=== PATIENT | female | born 1990 | race Caucasian/White ===

== ENCOUNTER → 2017-01-11 | Outpatient (CLI) | payer BC ==
--- NOTE | 2017-01-11 09:32 | MM ---
Reason for exam: clinical finding. Baseline mammogram. History: Family history of breast cancer in maternal grandmother at age 50. Took hormonal contraceptives for 10 years beginning at age 11. Physical Findings: Nurse did not find any significant physical abnormalities on exam. MG 3D Diag Mammo W/Cad HIGINIO Bilateral CC and MLO view(s) were taken. There are scattered fibroglandular densities. Asymmetric breast tissue in the right breast denser than left breast. There is no discrete abnormality. These results were verbally communicated with the patient and result sheet given to the patient on 01/11/17. ASSESSMENT: Negative, BI-RAD 1 RECOMMENDATION: Routine screening mammogram of both breasts at age 33. Manage patient on a clinical basis.
--- NOTE | 2017-01-11 09:34 | USB ---
Reason for exam: clinical finding. History: Family history of breast cancer in maternal grandmother at age 50. Took hormonal contraceptives for 10 years beginning at age 11. US Breast LT Left breast ultrasound demonstrates no cystic or solid lesion seen. These results were verbally communicated with the patient and result sheet given to the patient on 01/11/17. ASSESSMENT: Negative, BI-RAD 1 RECOMMENDATION: Routine screening mammogram of both breasts at age 33. Manage patient on a clinical basis.
== END | disposition home or self-care (01) ==
LOC: RADMAMWWP 07:34
PROVIDERS: ATTEND Family Medicine
DX: N63 Unspecified lump in breast (principal); N64.59 Other signs and symptoms in breast
CPT/HCPCS: 76641; G0204; G0279

== ENCOUNTER 2017-01-18 19:52 | Emergency (ER) | payer BC ==
[2017-01-18] MEDS ORDERED: SODIUM CHLORIDE 0.9% 1,000 ML IV ONE (20:23)
--- NOTE | 2017-01-18 20:45 | ED ---
Abdominal Pain HPI - General Chief Complaint: Abdominal Pain Stated Complaint: lower abdominal pain Source: patient Mode of arrival: ambulatory Limitations: no limitations - History of Present Illness Initial Comments: Patient is a 26-year-old female resents for evaluation for lower abdominal pain. Past medical history as below. Patient stated last night she developed epigastric discomfort which was sharp in character. It is now migrated down to the low midline suprapubic area. There is some mild radiation to the right lower side. She states the pain is currently 6-7 out of 10. Not severe. Nothing makes it better or worse. She has no associated nausea vomiting or diarrhea. She has good appetite today. Bumps in the road did not hurt her abdominal pain. She has no vaginal bleeding or discharge. Last measured cycle was 12/24/2016. She has a history of ovarian cyst on the right. She had a normal bowel movement today. No fevers. No sick contacts or recent travel. No changes in medication. She also denies any urinary symptoms. Also denies URI symptoms, shortness breath, cough, chest pain. - Related Data Home Medications Medication Instructions Recorded Confirmed Acetaminophen [Tylenol] 650 mg PO Q4H PRN 01/18/17 01/18/17 Cetirizine HCl [Zyrtec] 10 mg PO DAILY PRN 01/18/17 01/18/17 Ibuprofen [Motrin] 800 mg PO DAILY PRN 01/18/17 01/18/17 Previous Rx's Medication Instructions Recorded Naproxen 500 mg PO BID #14 tablet 01/18/17 Allergies Allergy/AdvReac Type Severity Reaction Status Date / Time hydromorphone HCl AdvReac Nausea & Verified 01/18/17 20:14 [From Dilaudid] Vomiting berries Allergy Swelling Uncoded 01/18/17 20:03 sunflower seeds Allergy Swelling Uncoded 01/18/17 20:03 Review of Systems ROS Statement: Those systems with pertinent positive or pertinent negative responses have been documented in the HPI. ROS Other: All systems not noted in ROS Statement are negative. Past Medical History Past Medical History: No Reported History Additional Past Medical History / Comment(s): MIGRAINES, KIDNEY STONES, GESTATIONAL DIABETES. POST - BABY BORN 01/01/14. History of Any Multi-Drug Resistant Organisms: None Reported Past Surgical History: Cholecystectomy, Orthopedic Surgery Additional Past Surgical History / Comment(s): RT KNEE ARTHROSCOPY AND OSTEOTOMY Past Anesthesia/Blood Transfusion Reactions: No Reported Reaction Past Psychological History: No Psychological Hx Reported Smoking Status: Never smoker Past Alcohol Use History: None Reported Past Drug Use History: None Reported - Past Family History Mother Family Medical History: Cancer Additional Family Medical History / Comment(s): MOTHER SKIN CANCER General Exam Limitations: no limitations General appearance: alert, in no apparent distress, other (Nontoxic appearing) Head exam: Present: atraumatic, normocephalic, normal inspection Eye exam: Present: normal appearance, PERRL, EOMI. Absent: scleral icterus, conjunctival injection, periorbital swelling ENT exam: Present: normal exam, mucous membranes moist Neck exam: Present: normal inspection. Absent: tenderness, meningismus, lymphadenopathy Respiratory exam: Present: normal lung sounds bilaterally. Absent: respiratory distress, wheezes, rales, rhonchi, stridor Cardiovascular Exam: Present: regular rate, normal rhythm, normal heart sounds. Absent: systolic murmur, diastolic murmur, rubs, gallop, clicks GI/Abdominal exam: Present: soft, tenderness, normal bowel sounds, other ( Normal bowel sounds in all 4 quadrants. No tenderness in the epigastric, LUQ/ RUQ/RLQ/LLQ. Negative McBurney sign. No rebound tenderness. Negative Rovsing sign. Negative obturator sign. Negative psoas sign. No pain with jumping up and down on her right leg. She does have some pain with palpation of the suprapubic area.). Absent: distended, guarding, rebound, rigid Extremities exam: Present: normal inspection, full ROM, normal capillary refill. Absent: tenderness, pedal edema, joint swelling, calf tenderness Back exam: Present: normal inspection Neurological exam: Present: alert, oriented X3, CN II-XII intact Psychiatric exam: Present: normal affect, normal mood Skin exam: Present: warm, dry, intact, normal color. Absent: rash Course Vital Signs 01/18/17 20:00 Temperature 98.4 F Pulse Rate 87 Respiratory 16 Rate Blood Pressure 136/79 O2 Sat by Pulse 98 Oximetry Medical Decision Making - Medical Decision Making 2000: Patient is a 26-year-old female presents for evaluation for suprapubic pain. Her history and physical exam is not consistent with an acute appendicitis. Had a lengthy discussion with the patient. Elected to do blood work and ultrasound of her pelvis to identify possible ovarian cyst. She does not want anything for pain at this time. Will order IV fluids. 2100: Reevaluated the patient. States that her pain is 100% resolved. States that she is tired and is requesting to go home. Do not have her laboratory studies back or her ultrasound. Willing to stay. 2220: Laboratory studies as below. CBC, BMP, urinalysis all within normal limits. 2245: Reviewed ultrasound findings. Right hemorrhagic ovarian cyst. Good bloodflow to the ovary. Small amount of free fluid in the pelvis. Consistent with a ruptured hemorrhagic cyst. Patient is pain-free at this time. Discussed all findings with the patient. Will discharge home with naproxen. Encouraged not to take any other NSAIDs or Motrin with the naproxen. She states that she has an career development coordinator that she can follow-up with. Encouraged her to follow up with her primary care physician will provided OB/ REFERRAL AGENT for follow-up if unable to follow in a reasonable time. Discussed signs and symptoms on when to return to emergency department for further evaluation. Comfortable with discharge home and will follow-up. - Lab Data Result diagrams: 01/18/17 21:25 01/18/17 21:25 Lab Results 01/18/17 01/18/17 01/18/17 Range/Units 21:18 21:18 21:25 WBC (3.8-10.6) k/uL RBC (3.80-5.40) m/uL Hgb (11.4-16.0) gm/dL Hct (34.0-46.0) % MCV (80.0-100.0) fL MCH (25.0-35.0) pg MCHC (31.0-37.0) g/dL RDW (11.5-15.5) % Plt Count (150-450) k/uL Neutrophils % % Lymphocytes % % Monocytes % % Eosinophils % % Basophils % % Neutrophils # (1.3-7.7) k/uL Lymphocytes # (1.0-4.8) k/uL Monocytes # (0-1.0) k/uL Eosinophils # (0-0.7) k/uL Basophils # (0-0.2) k/uL Sodium 140 (137-145) mmol/L Potassium 4.0 (3.5-5.1) mmol/L Chloride 106 (98-107) mmol/L Carbon Dioxide 21 L (22-30) mmol/L Anion Gap 13 mmol/L BUN 12 (7-17) mg/dL Creatinine 0.64 (0.52-1.04) mg/dL Est GFR (MDRD) Af Amer >60 (>60 ml/min/1.73 sqM) Est GFR (MDRD) Non-Af >60 (>60 ml/min/1.73 sqM) Glucose 127 H (74-99) mg/dL Calcium 9.4 (8.4-10.2) mg/dL Urine Color Yellow Urine Appearance Clear (Clear) Urine pH 7.5 (5.0-8.0) Ur Specific [place] 1.015 (1.001-1.035) Urine Protein Negative (Negative) Urine Glucose (UA) Negative (Negative) Urine Ketones Negative (Negative) Urine Blood Negative (Negative) Urine Nitrite Negative (Negative) Urine Bilirubin Negative (Negative) Urine Urobilinogen <2.0 (<2.0) mg/dL Ur Leukocyte Esterase Negative (Negative) Urine HCG, Qual Not Detected (Not Detectd) 01/18/17 Range/Units 21:25 WBC 8.5 (3.8-10.6) k/uL RBC 4.26 (3.80-5.40) m/uL Hgb 12.4 (11.4-16.0) gm/dL Hct 37.6 (34.0-46.0) % MCV 88.1 (80.0-100.0) fL MCH 29.1 (25.0-35.0) pg MCHC 33.1 (31.0-37.0) g/dL RDW 14.1 (11.5-15.5) % Plt Count 206 (150-450) k/uL Neutrophils % 66 % Lymphocytes % 26 % Monocytes % 5 % Eosinophils % 1 % Basophils % 0 % Neutrophils # 5.6 (1.3-7.7) k/uL Lymphocytes # 2.3 (1.0-4.8) k/uL Monocytes # 0.4 (0-1.0) k/uL Eosinophils # 0.1 (0-0.7) k/uL Basophils # 0.0 (0-0.2) k/uL Sodium (137-145) mmol/L Potassium (3.5-5.1) mmol/L Chloride (98-107) mmol/L Carbon Dioxide (22-30) mmol/L Anion Gap mmol/L BUN (7-17) mg/dL Creatinine (0.52-1.04) mg/dL Est GFR (MDRD) Af Amer (>60 ml/min/1.73 sqM) Est GFR (MDRD) Non-Af (>60 ml/min/1.73 sqM) Glucose (74-99) mg/dL Calcium (8.4-10.2) mg/dL Urine Color Urine Appearance (Clear) Urine pH (5.0-8.0) Ur Specific [place] (1.001-1.035) Urine Protein (Negative) Urine Glucose (UA) (Negative) Urine Ketones (Negative) Urine Blood (Negative) Urine Nitrite (Negative) Urine Bilirubin (Negative) Urine Urobilinogen (<2.0) mg/dL Ur Leukocyte Esterase (Negative) Urine HCG, Qual (Not Detectd) Disposition Clinical Impression: Hemorrhagic cyst of right ovary Disposition: HOME SELF-CARE Condition: Good Instructions: Ovarian Cyst (ED) Prescriptions: Naproxen 500 mg PO BID #14 tablet Referrals: Shilo Watkins III, MD [Primary Care Provider] - 1-2 days
[2017-01-18 22:04] LABS: Basophils % (A) 0 %; CH 29.3; CHCM 33.4; Eosinophils # (A) 0.1 k/uL (0-0.7); Eosinophils % (A) 1 %; HCT 37.6 % (34.0-46.0); HDW 2.39; HGB 12.4 gm/dL (11.4-16.0); Luc # (Auto) 0.15; Luc % (Auto) 2; Lymphocytes # (A) 2.3 k/uL (1.0-4.8); Lymphocytes % (A) 26 %; MCH 29.1 pg (25.0-35.0); MCHC 33.1 g/dL (31.0-37.0); MCV 88.1 fL (80.0-100.0); Monocytes # (A) 0.4 k/uL (0-1.0); Monocytes % (A) 5 %; Neutrophils # (A) 5.6 k/uL (1.3-7.7); Neutrophils % (A) 66 %; RBC 4.26 m/uL (3.80-5.40); RDW 14.1 % (11.5-15.5); WBC 8.5 k/uL (3.8-10.6); WBC (Perox) 8.77
[2017-01-18 22:05] LABS: Appearance,Urine Clear (Clear); Bilirubin,Urine Negative (Negative); Glucose,Urine (UA) Negative (Negative); Ketones,Urine Negative (Negative); Leukocyte Esterase,Urine Negative (Negative); Nitrite,Urine Negative (Negative); PH, Urine 7.5 (5.0-8.0); Protein,Urine Negative (Negative); Specific Gravity,Urine 1.015 (1.001-1.035); UA Billing (MACRO vs. MICRO) CHEM; Urobilinogen,Urine <2.0 mg/dL (<2.0)
[2017-01-18 22:08] LABS: Anion Gap 13 mmol/L; Blood Urea Nitrogen 12 mg/dL (7-17); Calcium 9.4 mg/dL (8.4-10.2); Carbon Dioxide 21 mmol/L (22-30); Chloride 106 mmol/L (98-107); Glucose 127 mg/dL (74-99); Non-African American GFR(MDRD) >60 (>60 ml/min/1.73 sqM); Sodium 140 mmol/L (137-145)
--- NOTE | 2017-01-18 22:42 | US ---
History: Reason: Pain Exam: US PELVIC/ENDOVAG Comparison: FINDINGS: The uterus measures 8 x 4.1 x 5.4 cm with a volume of 92 cc. 1.1 cm endometrial stripe, correlate with menstrual cycle. The right ovary measures 3.3 x 2.9 x 3.1 cm the volume of 15.8 cc. The right ovary contains a complex cystic lesion measuring 2 x 1.7 x 2 cm and may represent hemorrhagic cyst. A small follicle is noted. There is evidence of arterial and venous flow to the right ovarian tissue. The left ovary measures 3.1 x 1.7 x 1.8 cm the volume of 4.9 cc. There is evidence of arterial and venous flow to left ovarian tissue. Small amount of free fluid is present with appearance of low level echoes, debris or hemorrhage. IMPRESSION: The right ovary contains a complex cystic lesion measuring 2 x 1.7 x 2 cm and may represent hemorrhagic cyst. A small follicle is noted. There is evidence of arterial and venous flow to the right ovarian tissue. Small amount of free fluid is present with appearance of low level echoes, debris or hemorrhage. 1.1 cm endometrial stripe, correlate with menstrual cycle.
[2017-01-18 22:59] VITALS: BP 110/66; PULSE 83; RESP 18; TEMP 98.3
== END 2017-01-18 23:09 | disposition home or self-care (01) ==
LOC: EC 19:52
DX: N83.201 Unspecified ovarian cyst, right side (principal); Z88.5 Allergy status to narcotic agent; Z91.018 Allergy to other foods; Z91.048 Other nonmedicinal substance allergy status; Z87.442 Personal history of urinary calculi; Z90.49 Acquired absence of other specified parts of digestive tract
CPT/HCPCS: 36415; 76830; 80048; 81003; 81025; 85025; 93975; 96360; 99284

== ENCOUNTER 2017-09-13 10:00 | Emergency (ER) | payer BC ==
[2017-09-13] MEDS ORDERED: ONDANSETRON 4 MG/2 ML VIAL IVP STA (10:36)
[2017-09-13] MEDS ORDERED: SODIUM CHLORIDE 0.9% 1,000 ML IV STA (10:36)
[2017-09-13] MEDS ORDERED: SODIUM CHLORIDE 0.9% 500 ML IV STA (10:36)
[2017-09-13] MEDS ORDERED: PANTOPRAZOLE 40 MG/10 ML VIAL IVP STA (10:36)
[2017-09-13] MEDS ORDERED: MORPHINE SULFATE 4 MG/ML SYRINGE IV STA (10:36)
[2017-09-13 10:53] LABS: Appearance,Urine Clear (Clear); Bilirubin,Urine Negative (Negative); Blood,Urine Negative (Negative); Color,Urine Yellow; Glucose,Urine (UA) Negative (Negative); Ketones,Urine Negative (Negative); Leukocyte Esterase,Urine Small (Negative); Mucus,Urine Rare /hpf; Nitrite,Urine Negative (Negative); Protein,Urine Negative (Negative); RBC,Urine 1 /hpf (0-5); Specific Gravity,Urine 1.018 (1.001-1.035); Squamous Epithelial Cell,Urine 2 /hpf (0-4); Urobilinogen,Urine <2.0 mg/dL (<2.0); WBC,Urine 6 /hpf (0-5)
[2017-09-13 11:02] LABS: Basophils % (A) 0 %; Eosinophils # (A) 0.1 k/uL (0-0.7); Eosinophils % (A) 2 %; HCT 42.9 % (34.0-46.0); HGB 13.9 gm/dL (11.4-16.0); Lymphocytes # (A) 0.9 k/uL (1.0-4.8); Lymphocytes % (A) 12 %; MCH 28.1 pg (25.0-35.0); MCHC 32.3 g/dL (31.0-37.0); MCV 86.9 fL (80.0-100.0); Mean Platelet Volume 8.2; Monocytes # (A) 0.2 k/uL (0-1.0); Monocytes % (A) 2 %; Neutrophils # (A) 5.8 k/uL (1.3-7.7); Neutrophils % (A) 83 %; Platelet Count 202 k/uL (150-450); RBC 4.94 m/uL (3.80-5.40); RDW 14.3 % (11.5-15.5); WBC 7.1 k/uL (3.8-10.6)
[2017-09-13 11:07] LABS: ALT 17 U/L (9-52); AST 20 U/L (14-36); Albumin 4.3 g/dL (3.5-5.0); Alkaline Phosphatase 79 U/L (38-126); Amylase 55 U/L (30-110); Anion Gap 14 mmol/L; Blood Urea Nitrogen 13 mg/dL (7-17); Calcium 9.4 mg/dL (8.4-10.2); Carbon Dioxide 21 mmol/L (22-30); Chloride 106 mmol/L (98-107); Glucose 104 mg/dL (74-99); Lipase 42 U/L (23-300); Potassium 4.1 mmol/L (3.5-5.1); Sodium 141 mmol/L (137-145); Total Bilirubin 0.6 mg/dL (0.2-1.3); Total Protein 7.5 g/dL (6.3-8.2)
--- NOTE | 2017-09-13 11:42 | XR ---
EXAMINATION TYPE: XR chest 2V DATE OF EXAM: 09/13/2017 COMPARISON: None HISTORY: 26-year-old female right upper quadrant pain and nausea TECHNIQUE: PA and lateral views FINDINGS: The cardiomediastinal silhouette, aorta, and pulmonary vasculature are within normal limits. Lungs an d pleural spaces are clear. IMPRESSION: No acute cardiopulmonary process.
--- NOTE | 2017-09-13 11:44 | XR ---
EXAMINATION TYPE: XR KUB DATE OF EXAM: 09/13/2017 CLINICAL DATA: 26-year-old female with abdominal pain and nausea, PHH COMPARISON: 09/03/2014 FINDINGS: Lung bases are clear. No evidence for free intraperitoneal air. No dilated small bowel. Scattered small air-fluid levels are present throughout the colon. Air extend s distally into the pelvis. No significant stool burden. Cholecystectomy clips are present. No suspicious calcifications. IMPRESSION: 1. No evidence of bowel obstruction or free intraperitoneal air. 2. Scattered small colonic air-fluid levels suggests mild generalized ileus or enteritis with liquid stool.
--- NOTE | 2017-09-13 12:36 | ED ---
Abdominal Pain HPI - General Chief Complaint: Abdominal Pain Stated Complaint: upper abdominal and upper/lower back pain Time Seen by Provider: 09/13/17 10:19 Source: patient Mode of arrival: ambulatory Limitations: no limitations - History of Present Illness Initial Comments: 26 years old female comes in with abdominal pain is epigastric pain and been there for about 10-3 days she is nauseous no vomiting though she is also complaining about upper and lower back pain don't know trauma though she status post gallbladder surgery about 3-1/2 years ago past medical history is unremarkable otherwise no history of ulcers she denies any alcohol use she has had a few episodes of firm a bronchitis she was on steroids she denies any use of nonsteroidal and his anti-inflammatories. She been having regular bowel movements, no fever no chills past nausea no vomiting no frequency urgency dysuria - Related Data Home Medications Medication Instructions Recorded Confirmed [place] Fe 1.530 1 tab PO HS 09/13/17 09/13/17 Ibuprofen [Motrin Ib] 600 - 800 mg PO TID PRN 09/13/17 09/13/17 Previous Rx's Medication Instructions Recorded Metoclopramide [Reglan] 10 mg PO ACHS #12 tab 09/13/17 Pantoprazole [Protonix] 40 mg PO DAILY #15 tablet. 09/13/17 traMADol HCL [Ultram] 50 mg PO Q6HR PRN #25 tab 09/13/17 Allergies Allergy/AdvReac Type Severity Reaction Status Date / Time hydromorphone HCl AdvReac Nausea & Verified 09/13/17 11:13 [From Dilaudid] Vomiting berries Allergy Swelling Uncoded 09/13/17 10:13 sunflower seeds Allergy Swelling Uncoded 09/13/17 10:13 Review of Systems ROS Statement: Those systems with pertinent positive or pertinent negative responses have been documented in the HPI. ROS Other: All systems not noted in ROS Statement are negative. Past Medical History Past Medical History: No Reported History Additional Past Medical History / Comment(s): MIGRAINES, KIDNEY STONES, GESTATIONAL DIABETES. POST - BABY BORN 01/01/14. History of Any Multi-Drug Resistant Organisms: None Reported Past Surgical History: Cholecystectomy, Orthopedic Surgery Additional Past Surgical History / Comment(s): RT KNEE ARTHROSCOPY AND OSTEOTOMY Past Anesthesia/Blood Transfusion Reactions: No Reported Reaction Past Psychological History: No Psychological Hx Reported Smoking Status: Never smoker Past Alcohol Use History: None Reported Past Drug Use History: None Reported - Past Family History Mother Family Medical History: Cancer Additional Family Medical History / Comment(s): MOTHER SKIN CANCER General Exam - General Exam Comments Initial Comments: General: The patient is awake and alert, in no distress, and does not appear acutely ill. Skin: Skin is warm and dry and no rashes or lesions are noted. Eye: Pupils are equal, round and reactive to light, extra-ocular movements are intact; there is normal conjunctiva bilaterally. Ears, nose, mouth and throat: There are moist mucous membranes and no oral lesions. Neck: The neck is supple, there is no tenderness or JVD. Cardiovascular: There is a regular rate and rhythm. No murmur, rub or gallop is appreciated. Respiratory: To auscultation bilateral, no wheezing no rhonchi no distress respiratory terrazas noticed Gastrointestinal: Tender in the epigastric area and mildly tender in the right upper quadrant area positive bowel sounds no guarding no rebounds Back: There is no tenderness to palpation in the midline. There is no obvious deformity. Musculoskeletal: Normal ROM, no tenderness, There is no pedal edema. There is no calf tenderness or swelling. No cords were appreciated. Neurological: CN II-XII intact, Cranial nerves III through XII are intact. There are no obvious motor or sensory deficits. Coordination appears grossly intact. Speech is normal. Psychiatric: Cooperative, appropriate mood & affect, normal judgment. Limitations: no limitations Course Vital Signs 09/13/17 10:11 Temperature 97.7 F Pulse Rate 102 H Respiratory 20 Rate Blood Pressure 135/79 O2 Sat by Pulse 98 Oximetry Patient was reassessed at 12 , CBC, comprehensive metabolic panel, amylase lipase are within normal range At the abdomen showed some mom ileus, this was discussed in detail with the patient explained patient that this ileus could get resolve the next 24 hours or could change into full f bowel obstruction, considering radiation she decided to hold off the CT of the abdomen and she wanted to go home and plans to come back if it gets worse Medical Decision Making - Lab Data Result diagrams: 09/13/17 10:47 09/13/17 10:47 Lab Results 09/13/17 09/13/17 09/13/17 Range/Units 10:30 10:30 10:47 WBC (3.8-10.6) k/uL RBC (3.80-5.40) m/uL Hgb (11.4-16.0) gm/dL Hct (34.0-46.0) % MCV (80.0-100.0) fL MCH (25.0-35.0) pg MCHC (31.0-37.0) g/dL RDW (11.5-15.5) % Plt Count (150-450) k/uL Neutrophils % % Lymphocytes % % Monocytes % % Eosinophils % % Basophils % % Neutrophils # (1.3-7.7) k/uL Lymphocytes # (1.0-4.8) k/uL Monocytes # (0-1.0) k/uL Eosinophils # (0-0.7) k/uL Basophils # (0-0.2) k/uL Sodium 141 (137-145) mmol/L Potassium 4.1 (3.5-5.1) mmol/L Chloride 106 (98-107) mmol/L Carbon Dioxide 21 L (22-30) mmol/L Anion Gap 14 mmol/L BUN 13 (7-17) mg/dL Creatinine 0.69 (0.52-1.04) mg/dL Est GFR (MDRD) Af Amer >60 (>60 ml/min/1.73 sqM) Est GFR (MDRD) Non-Af >60 (>60 ml/min/1.73 sqM) Glucose 104 H (74-99) mg/dL Calcium 9.4 (8.4-10.2) mg/dL Total Bilirubin 0.6 (0.2-1.3) mg/dL AST 20 (14-36) U/L ALT 17 (9-52) U/L Alkaline Phosphatase 79 (38-126) U/L Total Protein 7.5 (6.3-8.2) g/dL Albumin 4.3 (3.5-5.0) g/dL Amylase 55 (30-110) U/L Lipase 42 (23-300) U/L Urine Color Yellow Urine Appearance Clear (Clear) Urine pH 5.0 (5.0-8.0) Ur Specific [place] 1.018 (1.001-1.035) Urine Protein Negative (Negative) Urine Glucose (UA) Negative (Negative) Urine Ketones Negative (Negative) Urine Blood Negative (Negative) Urine Nitrite Negative (Negative) Urine Bilirubin Negative (Negative) Urine Urobilinogen <2.0 (<2.0) mg/dL Ur Leukocyte Esterase Small H (Negative) Urine RBC 1 (0-5) /hpf Urine WBC 6 H (0-5) /hpf Ur Squamous Epith Cells 2 (0-4) /hpf Urine Mucus Rare H (None) /hpf Urine HCG, Qual Not Detected (Not Detectd) 09/13/17 Range/Units 10:47 WBC 7.1 (3.8-10.6) k/uL RBC 4.94 (3.80-5.40) m/uL Hgb 13.9 (11.4-16.0) gm/dL Hct 42.9 (34.0-46.0) % MCV 86.9 (80.0-100.0) fL MCH 28.1 (25.0-35.0) pg MCHC 32.3 (31.0-37.0) g/dL RDW 14.3 (11.5-15.5) % Plt Count 202 (150-450) k/uL Neutrophils % 83 % Lymphocytes % 12 % Monocytes % 2 % Eosinophils % 2 % Basophils % 0 % Neutrophils # 5.8 (1.3-7.7) k/uL Lymphocytes # 0.9 L (1.0-4.8) k/uL Monocytes # 0.2 (0-1.0) k/uL Eosinophils # 0.1 (0-0.7) k/uL Basophils # 0.0 (0-0.2) k/uL Sodium (137-145) mmol/L Potassium (3.5-5.1) mmol/L Chloride (98-107) mmol/L Carbon Dioxide (22-30) mmol/L Anion Gap mmol/L BUN (7-17) mg/dL Creatinine (0.52-1.04) mg/dL Est GFR (MDRD) Af Amer (>60 ml/min/1.73 sqM) Est GFR (MDRD) Non-Af (>60 ml/min/1.73 sqM) Glucose (74-99) mg/dL Calcium (8.4-10.2) mg/dL Total Bilirubin (0.2-1.3) mg/dL AST (14-36) U/L ALT (9-52) U/L Alkaline Phosphatase (38-126) U/L Total Protein (6.3-8.2) g/dL Albumin (3.5-5.0) g/dL Amylase (30-110) U/L Lipase (23-300) U/L Urine Color Urine Appearance (Clear) Urine pH (5.0-8.0) Ur Specific [place] (1.001-1.035) Urine Protein (Negative) Urine Glucose (UA) (Negative) Urine Ketones (Negative) Urine Blood (Negative) Urine Nitrite (Negative) Urine Bilirubin (Negative) Urine Urobilinogen (<2.0) mg/dL Ur Leukocyte Esterase (Negative) Urine RBC (0-5) /hpf Urine WBC (0-5) /hpf Ur Squamous Epith Cells (0-4) /hpf Urine Mucus (None) /hpf Urine HCG, Qual (Not Detectd) Disposition Clinical Impression: Abdominal pain, Ileus Disposition: HOME SELF-CARE Condition: Good Instructions: Abdominal Pain (ED), Ileus (ED) Prescriptions: Metoclopramide [Reglan] 10 mg PO ACHS #12 tab Pantoprazole [Protonix] 40 mg PO DAILY #15 tablet. traMADol HCL [Ultram] 50 mg PO Q6HR PRN #25 tab PRN Reason: Pain Referrals: Shilo Watkins III, MD [Primary Care Provider] - 1-2 days
[2017-09-13 13:02] VITALS: BP 125/70; PULSE 97; RESP 16; TEMP 98
== END 2017-09-13 13:01 | disposition home or self-care (01) ==
LOC: EC 10:00
DX: K56.7 Ileus, unspecified (principal); M54.5 Low back pain; Z79.3 Long term (current) use of hormonal contraceptives; Z88.5 Allergy status to narcotic agent; Z91.018 Allergy to other foods; Z90.49 Acquired absence of other specified parts of digestive tract
CPT/HCPCS: 99284; 96374; 96375 ×2; 36415; 80053; 82150; 83690; 85025; 81001; 81025; 71046; 74018; 96361 ×2; J2270; J2405; C9113

== ENCOUNTER → 2018-12-11 | Outpatient (CLI) | payer OTHER ==
--- NOTE | 2018-12-11 11:33 | US ---
EXAMINATION TYPE: US pelvis complete transvag DATE OF EXAM: 12/11/2018 COMPARISON: 01/18/2017 CLINICAL HISTORY: R10.2 Pelvic And Perineal Pain,N83.291 Other ovarian cyst. Pt states pelvic pain, m ore on right side TECHNIQUE: Transvaginal (TV) and Transabdominal (TA) . Both were ordered per physician Date of LMP: 11/20/2018 EXAM MEASUREMENTS: Uterus: 7.4 x 3.6 x 4.7 cm Endometrial Stripe: 0.2 cm Right Ovary: 2.5 x 1.5 x 1.9 cm Left Ovary: 3.0 x 1.5 x 2.0 cm 1. Uterus: Retroverted Heterogeneous, small calcification in cervix 2. Endometrium: wnl 3. Right Ovary: wnl 4. Left Ovary: wnl 5. Bilateral Adnexa: wnl 6. Posterior cul-de-sac: wnl IMPRESSION: 1. The uterus is heterogeneous. There is a small calcification the cervix. Findings are nonspecific. No focal fibroid is seen. This can occasionally be associated with diffuse fibroid change. However, t he uterus demonstrates a normal morphology. 2. No evidence of ovarian cysts on today's exam.
== END | disposition home or self-care (01) ==
LOC: RADUSWWP 10:55
PROVIDERS: ATTEND Family Medicine
DX: N88.8 Other specified noninflammatory disorders of cervix uteri (principal); R10.2 Pelvic and perineal pain
CPT/HCPCS: 76830; 76856

== ENCOUNTER → 2019-05-20 | Outpatient (CLI) | payer OTHER ==
--- NOTE | 2019-05-20 13:18 | XR ---
Right ankle HISTORY: Right ankle pain, trauma 3 days prior 3 views of the right ankle There is a small ossific density which appears well-corticated distal to the medial malleolus. Alignm ent and joint spaces are maintained. Mild soft tissue swelling is noted. There is a small plantar andreea caneal spur. IMPRESSION: Correlate for point tenderness distal medial malleolus to assess for avulsion injury, chi p fracture.
== END | disposition home or self-care (01) ==
LOC: RADXRWHC 07:42
PROVIDERS: ATTEND Family Medicine
DX: M25.571 Pain in right ankle and joints of right foot (principal)

== ENCOUNTER 2019-08-01 15:48 | Emergency (ER) | payer BC, OTHER ==
[2019-08-01 16:41] VITALS: RESP 18; TEMP 98
[2019-08-01] MEDS ORDERED: ASPIRIN 81 MG PO STA (17:00)
--- NOTE | 2019-08-01 17:06 | XR ---
EXAMINATION TYPE: XR chest 2V DATE OF EXAM: 08/01/2019 COMPARISON: 09/13/2017 HISTORY: 28-year-old female left arm pain between the shoulder blades TECHNIQUE: PA and lateral views FINDINGS: The cardiomediastinal silhouette, aorta, and pulmonary vasculature are within normal limits. Lungs an d pleural spaces are clear. IMPRESSION: No acute cardiopulmonary process.
[2019-08-01 17:31] LABS: ALT 13 U/L (4-34); AST 40 U/L (14-36); African American GFR (CKD) >90 (>60 ml/min/1.73 sqM); Albumin 4.3 g/dL (3.5-5.0); Alkaline Phosphatase 104 U/L (38-126); Anion Gap 11 mmol/L; Blood Urea Nitrogen 19 mg/dL (7-17); Calcium 9.7 mg/dL (8.4-10.2); Carbon Dioxide 21 mmol/L (22-30); Chloride 107 mmol/L (98-107); Glucose 186 mg/dL (74-99); Non-African American GFR(CKD) >90 (>60 ml/min/1.73 sqM); Potassium 4.3 mmol/L (3.5-5.1); Sodium 139 mmol/L (137-145); Total Bilirubin 0.4 mg/dL (0.2-1.3); Total Protein 7.6 g/dL (6.3-8.2)
[2019-08-01 17:35] LABS: Basophils % (A) 0 %; Eosinophils # (A) 0.1 k/uL (0-0.7); Eosinophils % (A) 1 %; HCT 40.9 % (34.0-46.0); HGB 13.5 gm/dL (11.4-16.0); Lymphocytes # (A) 1.5 k/uL (1.0-4.8); Lymphocytes % (A) 22 %; MCH 28.5 pg (25.0-35.0); MCV 86.4 fL (80.0-100.0); Mean Platelet Volume 10.3; Monocytes # (A) 0.3 k/uL (0-1.0); Monocytes % (A) 4 %; Neutrophils # (A) 4.8 k/uL (1.3-7.7); Neutrophils % (A) 70 %; Platelet Count 217 k/uL (150-450); RBC 4.74 m/uL (3.80-5.40); RDW 14.1 % (11.5-15.5); WBC 6.8 k/uL (3.8-10.6)
--- NOTE | 2019-08-01 19:13 | ED ---
Back Pain HPI - General Chief Complaint: Back Pain/Injury Stated Complaint: Arm/back pain Time Seen by Provider: 08/01/19 16:19 Source: patient, family Limitations: no limitations - History of Present Illness Initial Comments: 28yo female with history of chronic back pain presenting today for cc of mid back pain that radiates down left arm. Patient states she woke up this AM with the pain in her mid/upper back that seemed to radiate to the left elbow, sharp shooting pain. Denies ripping tearing sensation or heart disease, denies DM/HTN. Denies smoking history. Denies chest pain, SOB, leg swelling or history of DVT/PE, denies denies pain increasing with ambulation or inspiration. Patient denies fever, URI symptoms. Denies falls or direct trauma. Patient denies any other complaints on arrival patient appears well no distress. Slight elevation of BP and HR. Patient appears in no distress. - Related Data Home Medications Medication Instructions Recorded Confirmed [place]ovi Fe 1.5 1 tab PO HS 09/13/17 09/13/17 Ibuprofen [Motrin Ib] 600 - 800 mg PO TID PRN 09/13/17 09/13/17 Previous Rx's Medication Instructions Recorded Metoclopramide [Reglan] 10 mg PO ACHS #12 tab 09/13/17 Pantoprazole [Protonix] 40 mg PO DAILY #15 tablet. 09/13/17 traMADol HCL [Ultram] 50 mg PO Q6HR PRN #25 tab 09/13/17 Allergies Allergy/AdvReac Type Severity Reaction Status Date / Time hydromorphone HCl AdvReac Nausea & Verified 08/01/19 16:41 [From Dilaudid] Vomiting berries Allergy Swelling Uncoded 08/01/19 16:41 sunflower seeds Allergy Swelling Uncoded 08/01/19 16:41 Review of Systems ROS Statement: Those systems with pertinent positive or pertinent negative responses have been documented in the HPI. ROS Other: All systems not noted in ROS Statement are negative. Past Medical History Past Medical History: No Reported History Additional Past Medical History / Comment(s): MIGRAINES, KIDNEY STONES, GESTATIONAL DIABETES. POST - BABY BORN 01/01/14. History of Any Multi-Drug Resistant Organisms: None Reported Past Surgical History: Cholecystectomy, Orthopedic Surgery Additional Past Surgical History / Comment(s): RT KNEE ARTHROSCOPY AND OSTEOTOMY Past Anesthesia/Blood Transfusion Reactions: No Reported Reaction Past Psychological History: No Psychological Hx Reported Smoking Status: Never smoker Past Alcohol Use History: None Reported Past Drug Use History: None Reported - Past Family History Mother Family Medical History: Cancer Additional Family Medical History / Comment(s): MOTHER SKIN CANCER General Exam - General Exam Comments Initial Comments: General: The patient is awake and alert, in no distress, and does not appear acutely ill. Eye: +3 mmm pupils are equal, round and reactive to light, extra-ocular movements are intact. No nystagmus. There is normal conjunctiva bilaterally. No signs of icterus. Ears, nose, mouth and throat: There are moist mucous membranes and no oral lesions. Neck: The neck is supple, there is no tenderness or JVD. Cardiovascular: There is a regular rate and rhythm. No murmur, rub or gallop is appreciated. Respiratory: Lungs are clear to auscultation, respirations are non-labored, breath sounds are equal. No wheezes, stridor, rales, or rhonchi. Gastrointestinal: Soft, non-distended, non-tender abdomen without masses or organomegaly noted. There is no rebound or guarding present. Musculoskeletal: Normal ROM, no tenderness. Strength 5/5. Sensation intact. Radial pulses equal bilaterally 2+. Neurological: A&O x 3. CN II-XII intact grossly, There are no obvious motor or sensory deficits. Coordination appears grossly intact. Speech is normal. Skin: Skin is warm and dry and no rashes or lesions are noted. No LE swelling. Psychiatric: Cooperative, appropriate mood & affect, normal judgment. Limitations: no limitations Course Vital Signs 08/01/19 08/01/19 08/01/19 16:39 19:10 21:04 Temperature 98 F Pulse Rate 106 H 94 103 H Respiratory 18 18 18 Rate Blood Pressure 140/83 124/70 152/79 O2 Sat by Pulse 97 98 96 Oximetry Medical Decision Making - Medical Decision Making 28-year-old female presenting for mid back pain radiating down left arm since this morning. Patient states she is unsure if she hurt herself or slept on her back wrong. Patient denies any chest pain shortness of breath initial EKG nonspecific ST findings initial troponin negative. Second troponin negative. Patient has low heart score and at this time I feel this is most likely musculoskeletal. Patient states she feel this is the cause however given patient weight, elevated random blood glucose and history provided i recommended outpatient pcp f/u and possible stress test. Patient verbalized understanding and was discharged appearing well agreed with treatment plan and return parameters. Discussed the case in length with attending provider Dr. Haas was agreeable with discharge at this time. Ventricular rate 101bpm, OR interval 142ms, QRS durations 76ms QT/QTc 348ms/451ms . Patient depression nonspecific T-wave abnormality. EKG percent interpreted and reviewed by my attending provider - Lab Data Result diagrams: 08/01/19 17:05 08/01/19 17:05 Lab Results 08/01/19 08/01/19 08/01/19 Range/Units 17: 17: 17:05 WBC 6.8 (3.8-10.6) k/uL RBC 4.74 (3.80-5.40) m/uL Hgb 13.5 (11.4-16.0) gm/dL Hct 40.9 (34.0-46.0) % MCV 86.4 (80.0-100.0) fL MCH 28.5 (25.0-35.0) pg MCHC 33.0 (31.0-37.0) g/dL RDW 14.1 (11.5-15.5) % Plt Count 217 (150-450) k/uL Neutrophils % 70 % Lymphocytes % 22 % Monocytes % 4 % Eosinophils % 1 % Basophils % 0 % Neutrophils # 4.8 (1.3-7.7) k/uL Lymphocytes # 1.5 (1.0-4.8) k/uL Monocytes # 0.3 (0-1.0) k/uL Eosinophils # 0.1 (0-0.7) k/uL Basophils # 0.0 (0-0.2) k/uL D-Dimer (<0.60) mg/L FEU Sodium 139 (137-145) mmol/L Potassium 4.3 (3.5-5.1) mmol/L Chloride 107 (98-107) mmol/L Carbon Dioxide 21 L (22-30) mmol/L Anion Gap 11 mmol/L BUN 19 H (7-17) mg/dL Creatinine 0.83 (0.52-1.04) mg/dL Est GFR (CKD-EPI)AfAm >90 (>60 ml/min/1.73 sqM) Est GFR (CKD-EPI)NonAf >90 (>60 ml/min/1.73 sqM) Glucose 186 H (74-99) mg/dL Calcium 9.7 (8.4-10.2) mg/dL Total Bilirubin 0.4 (0.2-1.3) mg/dL AST 40 H (14-36) U/L ALT 13 (4-34) U/L Alkaline Phosphatase 104 (38-126) U/L Troponin I <0.012 (0.000-0.034) ng/mL Total Protein 7.6 (6.3-8.2) g/dL Albumin 4.3 (3.5-5.0) g/dL Urine HCG, Qual (Not Detectd) 08/01/19 08/01/19 08/01/19 Range/Units 17:05 17:05 20:07 WBC (3.8-10.6) k/uL RBC (3.80-5.40) m/uL Hgb (11.4-16.0) gm/dL Hct (34.0-46.0) % MCV (80.0-100.0) fL MCH (25.0-35.0) pg MCHC (31.0-37.0) g/dL RDW (11.5-15.5) % Plt Count (150-450) k/uL Neutrophils % % Lymphocytes % % Monocytes % % Eosinophils % % Basophils % % Neutrophils # (1.3-7.7) k/uL Lymphocytes # (1.0-4.8) k/uL Monocytes # (0-1.0) k/uL Eosinophils # (0-0.7) k/uL Basophils # (0-0.2) k/uL D-Dimer 0.34 (<0.60) mg/L FEU Sodium (137-145) mmol/L Potassium (3.5-5.1) mmol/L Chloride (98-107) mmol/L Carbon Dioxide (22-30) mmol/L Anion Gap mmol/L BUN (7-17) mg/dL Creatinine (0.52-1.04) mg/dL Est GFR (CKD-EPI)AfAm (>60 ml/min/1.73 sqM) Est GFR (CKD-EPI)NonAf (>60 ml/min/1.73 sqM) Glucose (74-99) mg/dL Calcium (8.4-10.2) mg/dL Total Bilirubin (0.2-1.3) mg/dL AST (14-36) U/L ALT (4-34) U/L Alkaline Phosphatase (38-126) U/L Troponin I <0.012 (0.000-0.034) ng/mL Total Protein (6.3-8.2) g/dL Albumin (3.5-5.0) g/dL Urine HCG, Qual Not Detected (Not Detectd) Disposition Clinical Impression: Back pain, Left arm pain Disposition: HOME SELF-CARE Condition: Good Instructions (If sedation given, give patient instructions): Back Pain (ED) Additional Instructions: Please use medication as discussed. Please follow-up with family doctor in the next 2 days. Please return to emergency room if the symptoms increase or worsen or for any other concerns. Is patient prescribed a controlled substance at d/c from ED?: No Referrals: Shilo Watkins III, MD [Primary Care Provider] - 1-2 days Time of Disposition: 20:48
[2019-08-01 21:05] VITALS: BP 152/79; PULSE 103
== END 2019-08-01 21:05 | disposition home or self-care (01) ==
LOC: EC 15:48
DX: M54.6 Pain in thoracic spine (principal); M79.602 Pain in left arm; R73.9 Hyperglycemia, unspecified; R94.31 Abnormal electrocardiogram [ECG] [EKG]; M25.522 Pain in left elbow; R03.0 Elevated blood-pressure reading, without diagnosis of hypertension; Z88.5 Allergy status to narcotic agent; Z91.018 Allergy to other foods; Z79.3 Long term (current) use of hormonal contraceptives
CPT/HCPCS: 36415; 71046; 80053; 81025; 84484; 85025; 85379; 93005; 99284

== ENCOUNTER → 2020-04-25 | Outpatient (CLI) | payer BC ==
--- NOTE | 2020-04-25 10:44 | USB ---
Reason for exam: clinical finding. History: Family history of breast cancer in maternal grandmother at age 50. Took hormonal contraceptives for 10 years beginning at age 11. Indicated problem(s): pain in the right breast. Physical Findings: Nurse did not find any significant physical abnormalities on exam. US Breast RT Right complete breast ultrasound includes all four quadrants, the retroareolar region and axilla. Finding demonstrates no cystic or solid lesion seen. Normal node noted in axilla. These results were verbally communicated with the patient and result sheet given to the patient on 04/25/20. ASSESSMENT: Negative, BI-RAD 1 RECOMMENDATION: Routine screening mammogram of both breasts at age 33.
== END | disposition home or self-care (01) ==
LOC: RADUSWWP 09:07
PROVIDERS: ATTEND Obstetrics & Gynecology
DX: N64.4 Mastodynia (principal); Z80.3 Family history of malignant neoplasm of breast

== ENCOUNTER 2021-01-29 17:30 | Emergency (ER) | payer BC ==
[2021-01-29 17:43] VITALS: RESP 18
[2021-01-29] MEDS ORDERED: SODIUM CHLORIDE 0.9% 1,000 ML IV STA (18:27)
[2021-01-29] MEDS ORDERED: ASPIRIN 81 MG PO STA (18:27)
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
[2021-01-29 18:46] LABS: Appearance,Urine Clear (Clear); Bilirubin,Urine Negative (Negative); Blood,Urine Negative (Negative); Color,Urine Colorless; Glucose,Urine (UA) Negative (Negative); Ketones,Urine Negative (Negative); Leukocyte Esterase,Urine Negative (Negative); Nitrite,Urine Negative (Negative); Protein,Urine Negative (Negative); Specific Gravity,Urine 1.003 (1.001-1.035); Urobilinogen,Urine <2.0 mg/dL (<2.0)
[2021-01-29 18:48] LABS: Basophils % (A) 0 %; Eosinophils # (A) 0.1 k/uL (0-0.7); Eosinophils % (A) 1 %; HCT 39.8 % (34.0-46.0); HGB 13.7 gm/dL (11.4-16.0); Lymphocytes # (A) 1.1 k/uL (1.0-4.8); Lymphocytes % (A) 11 %; MCH 28.6 pg (25.0-35.0); MCHC 34.4 g/dL (31.0-37.0); MCV 83.2 fL (80.0-100.0); Mean Platelet Volume 9.7; Monocytes # (A) 0.3 k/uL (0-1.0); Monocytes % (A) 3 %; Neutrophils # (A) 8.3 k/uL (1.3-7.7); Neutrophils % (A) 85 %; Platelet Count 246 k/uL (150-450); RBC 4.78 m/uL (3.80-5.40); WBC 9.7 k/uL (3.8-10.6)
[2021-01-29 18:57] LABS: ALT 11 U/L (4-34); AST 22 U/L (14-36); African American GFR (CKD) >90 (>60 ml/min/1.73 sqM); Albumin 4.6 g/dL (3.5-5.0); Alkaline Phosphatase 104 U/L (38-126); Anion Gap 12 mmol/L; Blood Urea Nitrogen 16 mg/dL (7-17); Calcium 10.1 mg/dL (8.4-10.2); Carbon Dioxide 20 mmol/L (22-30); Chloride 105 mmol/L (98-107); Glucose 172 mg/dL (74-99); Magnesium 1.7 mg/dL (1.6-2.3); Non-African American GFR(CKD) >90 (>60 ml/min/1.73 sqM); Potassium 4.2 mmol/L (3.5-5.1); Sodium 137 mmol/L (137-145); Total Bilirubin 0.3 mg/dL (0.2-1.3); Total Protein 7.7 g/dL (6.3-8.2)
[2021-01-29 19:02] LABS: D-Dimer 0.53 mg/L FEU (<0.60); INR 0.9 (<1.2); Prothrombin Time 9.7 sec (9.0-12.0)
[2021-01-29 19:08] LABS: Partial Thromboplastin Time 19.7 sec (22.0-30.0)
--- NOTE | 2021-01-29 19:38 | XR ---
EXAMINATION TYPE: XR chest 2V DATE OF EXAM: 01/29/2021 COMPARISON: 08/01/2019 HISTORY: Chest pain TECHNIQUE: 2 views FINDINGS: Heart and mediastinum are normal. Lungs are clear. Diaphragm is normal. Bony thorax is inta ct. IMPRESSION: Normal chest. No change.
[2021-01-29 20:05] VITALS: BP 118/71; PULSE 74; TEMP 98
== END 2021-01-29 20:05 | disposition home or self-care (01) ==
LOC: EC 17:30
DX: R07.89 Other chest pain (principal); F41.9 Anxiety disorder, unspecified; G40.909 Epilepsy, unspecified, not intractable, without status epilepticus
CPT/HCPCS: 36415; 71046; 80053; 81003; 81025; 83735; 84484; 85025; 85379; 85610; 85730; 93005; 96360; 99285

== ENCOUNTER → 2021-03-17 | Outpatient (CLI) | payer OTHER ==
--- NOTE | 2021-03-17 12:00 | XR ---
EXAMINATION TYPE: XR ankle complete RT DATE OF EXAM: 03/17/2021 COMPARISON: NONE HISTORY: Pain FINDINGS: Three views of the ankle demonstrate the ankle mortise to be intact and symmetric. The joint spaces are preserved. The osseous structures are intact. Well-corticated bony density along the medial mal leolus. IMPRESSION: 1. No definite acute fracture or dislocation, if symptoms persist follow-up study in 7 to 10 days wou ld be suggested.
--- NOTE | 2021-03-17 12:00 | XR ---
EXAMINATION TYPE: XR foot complete RT DATE OF EXAM: 03/17/2021 COMPARISON: NONE HISTORY: Pain TECHNIQUE: Three views are submitted. FINDINGS: The osseous structures are intact. There is no acute fracture or dislocation. Joint spaces are p reserved. Tiny plantar calcaneal spur IMPRESSION: 1. No acute fracture or dislocation. If symptoms persist, follow-up exam in 7 to 10 days could be ob tained.
== END | disposition home or self-care (01) ==
LOC: RADXRMAIN 11:31
PROVIDERS: ATTEND Emergency Medicine
DX: M77.31 Calcaneal spur, right foot (principal)

== ENCOUNTER 2021-12-26 20:36 | Emergency (ER) | payer BC ==
[2021-12-26 20:59] VITALS: TEMP 98.1
[2021-12-26 21:44] VITALS: BP 114/79; PULSE 113; RESP 20
[2021-12-26] MEDS ORDERED: SODIUM CHLORIDE 0.9% 1,000 ML IV STA (22:24)
[2021-12-26] MEDS ORDERED: ONDANSETRON 4 MG/2 ML VIAL IVP STA (22:24)
[2021-12-26] MEDS ORDERED: MORPHINE SULFATE 4 MG/ML SYRINGE IVP STA (22:27)
--- NOTE | 2021-12-26 23:28 | XR ---
EXAMINATION TYPE: XR KUB DATE OF EXAM: 12/26/2021 COMPARISON: 09/13/2017 HISTORY: Abdominal pain TECHNIQUE: 2 views FINDINGS: 2 views upright show no sign of intestinal obstruction or pneumoperitoneum. Fecal pattern i s normal. There are a few intestinal fluid levels. I see no dilated loops. Lung bases are clear. No c alcification seen over the kidneys. There are clips from cholecystectomy. IMPRESSION: There are a few intestinal fluid levels that could relate to some ileus. No change.
[2021-12-26 23:56] LABS: ALT 18 U/L (4-34); AST 35 U/L (14-36); African American GFR (CKD) >90 (>60 ml/min/1.73 sqM); Albumin 5.1 g/dL (3.5-5.0); Alkaline Phosphatase 79 U/L (38-126); Amylase 65 U/L (30-110); Anion Gap 15 mmol/L; Blood Urea Nitrogen 18 mg/dL (7-17); Calcium 9.9 mg/dL (8.4-10.2); Carbon Dioxide 20 mmol/L (22-30); Chloride 103 mmol/L (98-107); Glucose 133 mg/dL (74-99); Lipase 40 U/L (23-300); Non-African American GFR(CKD) >90 (>60 ml/min/1.73 sqM); Potassium 4.4 mmol/L (3.5-5.1); Sodium 138 mmol/L (137-145); Total Bilirubin 0.7 mg/dL (0.2-1.3); Total Protein 8.7 g/dL (6.3-8.2)
[2021-12-26 23:58] LABS: Appearance,Urine Clear (Clear); Bilirubin,Urine 1+ (Negative); Blood,Urine Trace (Negative); Color,Urine Yellow; Glucose,Urine (UA) Negative (Negative); Ketones,Urine 4+ (Negative); Leukocyte Esterase,Urine Small (Negative); Mucus,Urine Rare /hpf; Nitrite,Urine Negative (Negative); PH, Urine 5.5 (5.0-8.0); Protein,Urine Trace (Negative); RBC,Urine 1 /hpf (0-5); Specific Gravity,Urine 1.033 (1.001-1.035); Squamous Epithelial Cell,Urine 2 /hpf (0-4); Urobilinogen,Urine <2.0 mg/dL (<2.0); WBC,Urine 3 /hpf (0-5)
[2021-12-27 00:01] LABS: Basophils % (A) 0 %; Eosinophils # (A) 0.1 k/uL (0-0.7); Eosinophils % (A) 1 %; HCT 44.4 % (34.0-46.0); HGB 14.5 gm/dL (11.4-16.0); Lymphocytes # (A) 0.6 k/uL (1.0-4.8); Lymphocytes % (A) 5 %; MCH 28.7 pg (25.0-35.0); MCHC 32.8 g/dL (31.0-37.0); MCV 87.6 fL (80.0-100.0); Mean Platelet Volume 10.3; Monocytes # (A) 0.3 k/uL (0-1.0); Monocytes % (A) 3 %; Neutrophils # (A) 10.5 k/uL (1.3-7.7); Neutrophils % (A) 91 %; Platelet Count 280 k/uL (150-450); RBC 5.07 m/uL (3.80-5.40); RDW 14.2 % (11.5-15.5); WBC 11.6 k/uL (3.8-10.6)
[2021-12-27] MEDS ORDERED: MAG HYDROX/AL HYDROX/SIMETH 30 ML, HYOSCYAMINE ELIXIR 10 ML, LIDOCAINE VISCOUS 2% 10 ML PO STA ×3 (00:03)
[2021-12-27] MEDS ORDERED: FAMOTIDINE 20 MG/2 ML VIAL IV STA (00:03)
--- NOTE | 2021-12-27 00:10 | CT ---
EXAMINATION TYPE: CT abdomen pelvis w con DATE OF EXAM: 12/26/2021 COMPARISON: 09/03/2014 HISTORY: epigastric pain CT DLP: 983.1 mGycm Automated exposure control for dose reduction was used. CONTRAST: Performed with IV Contrast, patient injected with 100 mL of Isovue 300. Images obtained from the diaphragm to the floor the pelvis with IV contrast. The lung bases are clear. No pleural effusion. Heart size is normal. No pericardial effusion. Liver s pleen and stomach pancreas appear intact. There are clips from cholecystectomy. The bile ducts are no t dilated. There is no adrenal mass. Kidneys have normal size and contour. No hydronephrosis. Delayed images paige w normal renal excretion. There is no retroperitoneal adenopathy. Bladder distends smoothly. Uterus i s retroverted. No evidence of a pelvic mass. Lumbar vertebrae have normal spacing and alignment. Posterior elements are intact. No compression fra cture. Facet joints are intact. There is no mesenteric edema. No ascites or free air. No sign of a bowel obstruction. There are large bowel fluid levels down to the rectum. Terminal ileum appears normal. Appendix appears normal and al srinivas the lateral pelvic sidewall. Appendix partially filled with air. IMPRESSION: Normal appendix. There are large small fluid levels with fluid down to the rectum consistent with diarrhea.
[2021-12-27] MEDS ORDERED: ONDANSETRON 4 MG ODT STARTER PACK 2 TAB BTL PO STA (00:38)
[2021-12-27] MEDS ORDERED: KETOROLAC 15 MG/ML 1 ML VIAL IM STA (00:44)
--- NOTE | 2021-12-27 00:45 | ED ---
Abdominal Pain HPI - General Chief Complaint: Abdominal Pain Stated Complaint: Abd pain,Vomiting Time Seen by Provider: 12/26/21 22:17 Source: patient Mode of arrival: ambulatory Limitations: no limitations - History of Present Illness Initial Comments: Patient is a 31-year-old female presenting with chief complaint of abdominal pain. She has a history of type 2 diabetes. Patient states that starting today she began experiencing epigastric pain, at times the pain radiates to her back. It is accompanied by nausea, vomiting, diarrhea. She denies any hematochezia, melena, hematuria, dysuria, urgency, frequency. Does not change with food or positioning. She denies any chest pain, shortness of breath, palpitations, weakness, headache, vision changes, neck pain, recent illness, URI like symptoms. - Related Data Home Medications Medication Instructions Recorded Confirmed [place] Fe .5 1 tab PO HS 09/13/17 09/13/17 Ibuprofen [Motrin Ib] 600 - 800 mg PO TID PRN 09/13/17 09/13/17 Previous Rx's Medication Instructions Recorded Metoclopramide [Reglan] 10 mg PO ACHS #12 tab 09/13/17 Pantoprazole [Protonix] 40 mg PO DAILY #15 tablet. 09/13/17 traMADol HCL [Ultram] 50 mg PO Q6HR PRN #25 tab 09/13/17 Famotidine [Pepcid] 20 mg PO HS #10 tablet 12/27/21 Allergies Allergy/AdvReac Type Severity Reaction Status Date / Time hydromorphone HCl AdvReac Nausea & Verified 12/26/21 20:55 [From Dilaudid] Vomiting berries Allergy Swelling Uncoded 12/26/21 20:55 sunflower seeds Allergy Swelling Uncoded 12/26/21 20:55 Review of Systems ROS Statement: Those systems with pertinent positive or pertinent negative responses have been documented in the HPI. ROS Other: All systems not noted in ROS Statement are negative. Past Medical History Past Medical History: Diabetes Mellitus Additional Past Medical History / Comment(s): MIGRAINES, KIDNEY STONES, GESTATIONAL DIABETES. History of Any Multi-Drug Resistant Organisms: None Reported Past Surgical History: Cholecystectomy, Orthopedic Surgery Additional Past Surgical History / Comment(s): RT KNEE ARTHROSCOPY AND OSTEOTOMY Past Anesthesia/Blood Transfusion Reactions: No Reported Reaction Past Psychological History: No Psychological Hx Reported Smoking Status: Never smoker Past Alcohol Use History: None Reported Past Drug Use History: None Reported - Past Family History Mother Family Medical History: Cancer Additional Family Medical History / Comment(s): MOTHER SKIN CANCER General Exam Limitations: no limitations General appearance: alert, in no apparent distress Head exam: Present: atraumatic, normocephalic, normal inspection Eye exam: Present: normal appearance, EOMI. Absent: scleral icterus Neck exam: Present: normal inspection Respiratory exam: Present: normal lung sounds bilaterally. Absent: respiratory distress, wheezes, rales, rhonchi, stridor Cardiovascular Exam: Present: regular rate, normal rhythm, normal heart sounds. Absent: systolic murmur, diastolic murmur, rubs, gallop, clicks GI/Abdominal exam: Present: soft, tenderness (The epigastric region), normal bowel sounds. Absent: distended, guarding, rebound, rigid Neurological exam: Present: alert, oriented X3, CN II-XII intact Psychiatric exam: Present: normal affect, normal mood Skin exam: Present: warm, dry, intact, normal color. Absent: rash Course Vital Signs 12/26/21 12/26/21 20:55 21:43 Temperature 98.1 F Pulse Rate 110 H 113 H Respiratory 18 20 Rate Blood Pressure 111/69 114/79 O2 Sat by Pulse 98 97 Oximetry Medical Decision Making - Medical Decision Making Patient is a 31-year-old female presenting with chief complaint of epigastric pain. Is accompanied by nausea, vomiting, diarrhea, and began today. On examination abdomen is soft, nondistended, nontender over the epigastric region. No CVA tenderness. Normal bowel sounds in all 4 quadrants. Slight leukocytosis. UA shows signs of dehydration. KUB x-ray shows a few intestinal fluid levels that could relate to an ileus. CT shows normal appendix and fluid levels with fluid down to the rectum consistent with diarrhea. Patient was given Pepcid and GI cocktail as well as fluid bolus, on reassessment patient states that she is feeling better. She appears stable for discharge with outpatient follow-up at this time. I advised her to follow up with her PCP in one to 2 days. Provided her with Zofran starter pack and Pepcid. Report back to ER if any worsening symptoms. Answered all questions. I counseled on return parameters alarm symptoms. Patient conveyed verbal understanding and agreed to the plan. I discussed this case with my attending Dr. Owen. - Lab Data Result diagrams: 12/26/21 23:11 12/26/21 23:11 Lab Results 12/26/21 12/26/21 12/26/21 Range/Units 23:11 23:11 23:11 WBC 11.6 H (3.8-10.6) k/uL RBC 5.07 (3.80-5.40) m/uL Hgb 14.5 (11.4-16.0) gm/dL Hct 44.4 (34.0-46.0) % MCV 87.6 (80.0-100.0) fL MCH 28.7 (25.0-35.0) pg MCHC 32.8 (31.0-37.0) g/dL RDW 14.2 (11.5-15.5) % Plt Count 280 (150-450) k/uL MPV 10.3 Neutrophils % 91 % Lymphocytes % 5 % Monocytes % 3 % Eosinophils % 1 % Basophils % 0 % Neutrophils # 10.5 H (1.3-7.7) k/uL Lymphocytes # 0.6 L (1.0-4.8) k/uL Monocytes # 0.3 (0-1.0) k/uL Eosinophils # 0.1 (0-0.7) k/uL Basophils # 0.0 (0-0.2) k/uL Sodium (137-145) mmol/L Potassium (3.5-5.1) mmol/L Chloride (98-107) mmol/L Carbon Dioxide (22-30) mmol/L Anion Gap mmol/L BUN (7-17) mg/dL Creatinine (0.52-1.04) mg/dL Est GFR (CKD-EPI)AfAm (>60 ml/min/1.73 sqM) Est GFR (CKD-EPI)NonAf (>60 ml/min/1.73 sqM) Glucose (74-99) mg/dL Plasma Lactic Acid Jonas (0.7-2.0) mmol/L Calcium (8.4-10.2) mg/dL Total Bilirubin (0.2-1.3) mg/dL AST (14-36) U/L ALT (4-34) U/L Alkaline Phosphatase (38-126) U/L Troponin I (0.000-0.034) ng/mL Total Protein (6.3-8.2) g/dL Albumin (3.5-5.0) g/dL Amylase (30-110) U/L Lipase (23-300) U/L Urine Color Yellow Urine Appearance Clear (Clear) Urine pH 5.5 (5.0-8.0) Ur Specific [place] 1.033 (1.001-1.035) Urine Protein Trace H (Negative) Urine Glucose (UA) Negative (Negative) Urine Ketones 4+ H (Negative) Urine Blood Trace H (Negative) Urine Nitrite Negative (Negative) Urine Bilirubin 1+ H (Negative) Urine Urobilinogen <2.0 (<2.0) mg/dL Ur Leukocyte Esterase Small H (Negative) Urine RBC 1 (0-5) /hpf Urine WBC 3 (0-5) /hpf Ur Squamous Epith Cells 2 (0-4) /hpf Urine Mucus Rare H (None) /hpf Urine HCG, Qual Not Detected (Not Detectd) 12/26/21 12/26/21 12/26/21 Range/Units 23:11 23:11 23:11 WBC (3.8-10.6) k/uL RBC (3.80-5.40) m/uL Hgb (11.4-16.0) gm/dL Hct (34.0-46.0) % MCV (80.0-100.0) fL MCH (25.0-35.0) pg MCHC (31.0-37.0) g/dL RDW (11.5-15.5) % Plt Count (150-450) k/uL MPV Neutrophils % % Lymphocytes % % Monocytes % % Eosinophils % % Basophils % % Neutrophils # (1.3-7.7) k/uL Lymphocytes # (1.0-4.8) k/uL Monocytes # (0-1.0) k/uL Eosinophils # (0-0.7) k/uL Basophils # (0-0.2) k/uL Sodium 138 (137-145) mmol/L Potassium 4.4 (3.5-5.1) mmol/L Chloride 103 (98-107) mmol/L Carbon Dioxide 20 L (22-30) mmol/L Anion Gap 15 mmol/L BUN 18 H (7-17) mg/dL Creatinine 0.73 (0.52-1.04) mg/dL Est GFR (CKD-EPI)AfAm >90 (>60 ml/min/1.73 sqM) Est GFR (CKD-EPI)NonAf >90 (>60 ml/min/1.73 sqM) Glucose 133 H (74-99) mg/dL Plasma Lactic Acid Jonas 1.6 (0.7-2.0) mmol/L Calcium 9.9 (8.4-10.2) mg/dL Total Bilirubin 0.7 (0.2-1.3) mg/dL AST 35 (14-36) U/L ALT 18 (4-34) U/L Alkaline Phosphatase 79 (38-126) U/L Troponin I <0.012 (0.000-0.034) ng/mL Total Protein 8.7 H (6.3-8.2) g/dL Albumin 5.1 H (3.5-5.0) g/dL Amylase 65 (30-110) U/L Lipase 40 (23-300) U/L Urine Color Urine Appearance (Clear) Urine pH (5.0-8.0) Ur Specific [place] (1.001-1.035) Urine Protein (Negative) Urine Glucose (UA) (Negative) Urine Ketones (Negative) Urine Blood (Negative) Urine Nitrite (Negative) Urine Bilirubin (Negative) Urine Urobilinogen (<2.0) mg/dL Ur Leukocyte Esterase (Negative) Urine RBC (0-5) /hpf Urine WBC (0-5) /hpf Ur Squamous Epith Cells (0-4) /hpf Urine Mucus (None) /hpf Urine HCG, Qual (Not Detectd) Disposition Clinical Impression: Gastroenteritis Disposition: HOME SELF-CARE Condition: Good Instructions (If sedation given, give patient instructions): Dehydration (ED), Gastroenteritis (ED) Additional Instructions: Report back to ER if any worsening symptoms. Follow-up with PCP in one to 2 days. Take medication as prescribed. Prescriptions: Famotidine [Pepcid] 20 mg PO HS #10 tablet Is patient prescribed a controlled substance at d/c from ED?: No Referrals: Aleah Herrera MD [Primary Care Provider] - 1-2 days Time of Disposition: 00:44
== END 2021-12-27 01:02 | disposition home or self-care (01) ==
LOC: EC 20:36
DX: K52.9 Noninfective gastroenteritis and colitis, unspecified (principal); E11.9 Type 2 diabetes mellitus without complications; Z88.5 Allergy status to narcotic agent; Z91.018 Allergy to other foods
CPT/HCPCS: 36415; 93005; 80053; 82150; 83605; 83690; 84484; 85025; 81001; 81025; 74018; 74177; 99284; 96374; 96375; 96372; 96361; J2270; J2405; J1885; S0119; Q9967

== ENCOUNTER 2021-12-28 09:08 | Emergency (ER) | payer BC ==
[2021-12-28] MEDS ORDERED: diphenhydrAMINE 50 MG/ML 1 ML VIAL IVP STA (09:41)
[2021-12-28] MEDS ORDERED: SODIUM CHLORIDE 0.9% 2,000 ML IV STA (09:41)
[2021-12-28] MEDS ORDERED: ONDANSETRON 4 MG/2 ML VIAL IVP STA (09:41)
[2021-12-28] MEDS ORDERED: MORPHINE SULFATE 4 MG/ML SYRINGE IV STA (09:41)
[2021-12-28] MEDS ORDERED: FAMOTIDINE 20 MG/2 ML VIAL IV STA (09:41)
--- NOTE | 2021-12-28 09:51 | ED ---
General Adult HPI - General Chief complaint: Abdominal Pain Stated complaint: vomiting, diarrhea Time Seen by Provider: 12/28/21 09:30 Source: patient, RN notes reviewed, old records reviewed Mode of arrival: ambulatory Limitations: no limitations - History of Present Illness Initial comments: Patient is a 31-year-old female with past medical history remarkable for cholecystectomy, type 2 diabetes on metformin who presents emergency Department complaining of continued generalized abdominal crampy pain with continued diarrhea. Patient's PCP was concerned that she may have Salmonella. There was a recent outbreak with peanut butter, however patient's pain over that she has been eating has been uncontaminated. She cross referenced to the lot number provided by the [facility] and the people accompanying. She was seen 2 days ago for similar complaints, when CT imaging was obtained at that time and showed signs consistent for diarrhea. Labs showed some mild dehydration. Workup otherwise was unremarkable. She is discharged home. He has not had much improvement of her symptoms. Presents today she states she believes she is dehydrated, she is frequently using the restroom. Describes her diarrhea is nonbloody.. Denies any new symptoms. Endorses generalized abdominal pain, some mild concentration epigastric region. Endorses occasional nausea but no vomiting. Denies any urinary complaints. Denies . Has no chest pain or shortness of breath. Denies any known sick contacts. No recent long distance travel. No other acute complaints at this time. No rashes. No fevers. - Related Data Home Medications Medication Instructions Recorded Confirmed Ciprofloxacin HCl [Cipro] 500 mg PO Q12HR 12/28/21 12/28/21 Loperamide HCl [Imodium A-D] 4 mg PO Q4H PRN 12/28/21 12/28/21 Norethindrone-Ethinyl Estrad 1 tab PO DAILY 12/28/21 12/28/21 [Tri-Norinyl 28 Tablet] Ondansetron Odt [Zofran Odt] 4 mg PO Q8H PRN 12/28/21 12/28/21 metFORMIN HCL [Glucophage XR] 750 mg PO DAILY 12/28/21 12/28/21 Previous Rx's Medication Instructions Recorded Famotidine [Pepcid] 20 mg PO HS #10 tablet 12/27/21 Dicyclomine [Bentyl] 20 mg PO TID PRN 7 Days #21 tablet 12/28/21 HYDROcodone/APAP 5-325MG [[place] 1 tab PO Q6HR PRN 3 Days #12 tab 12/28/21 5-325] Ondansetron [Zofran ODT] 4 mg PO Q8HR PRN 3 Days #9 tab 12/28/21 Allergies Allergy/AdvReac Type Severity Reaction Status Date / Time blueberry Allergy Swelling Verified 12/28/21 09:49 raspberry Allergy Swelling Verified 12/28/21 09:49 strawberry Allergy Swelling Verified 12/28/21 09:49 [place] Seed Allergy Swelling Verified 12/28/21 09:49 hydromorphone HCl AdvReac Nausea & Verified 12/28/21 09:49 [From Dilaudid] Vomiting berries Allergy Swelling Uncoded 12/28/21 09:17 Review of Systems ROS Statement: Those systems with pertinent positive or pertinent negative responses have been documented in the HPI. Review of Systems: CONST: Denies fever EYES: Denies blurry vision ENT: Denies nasal congestion C/V: Denies Chest pain RESP: Denies shortness of breath GI: Endorses crampy abdominal pain. : Denies dysuria SKIN: Denies rash. MSK: Denies joint pain. NEURO: Denies headache ROS Other: All systems not noted in ROS Statement are negative. Past Medical History Past Medical History: Diabetes Mellitus Additional Past Medical History / Comment(s): MIGRAINES, KIDNEY STONES, GESTATIONAL DIABETES. History of Any Multi-Drug Resistant Organisms: None Reported Past Surgical History: Cholecystectomy, Orthopedic Surgery Additional Past Surgical History / Comment(s): RT KNEE ARTHROSCOPY AND OSTEOTOMY Past Anesthesia/Blood Transfusion Reactions: No Reported Reaction Past Psychological History: No Psychological Hx Reported Smoking Status: Never smoker Past Alcohol Use History: None Reported Past Drug Use History: None Reported - Past Family History Mother Family Medical History: Cancer Additional Family Medical History / Comment(s): MOTHER SKIN CANCER General Exam - General Exam Comments Initial Comments: General: Appears in no acute distress. HEAD: Normal with no signs of head trauma. EYES: PERRLA, EOMI, conjunctiva normal, no discharge. ENT: Hearing grossly intact, normal oropharynx. Mildly dry mucous membranes. RESPIRATORY: Clear breath sounds bilaterally. No wheezes, rales, or rhonchi. C/V: Regular rate and rhythm. S1 and S2 auscultated, no edema, peripheral pulses 2+ and intact throughout ABD: Abdomen soft, nondistended. Minimally tender to palpation. No guarding. No peritoneal signs. No rebound tenderness. No CVA tenderness on percussion. EXT: Normal range of motion, no obvious deformity SKIN: No rashes or lesions observed on exposed skin. NEURO: Alert and oriented 4. Limitations: no limitations Course Vital Signs 12/28/21 12/28/21 12/28/21 09:15 11:51 12:04 Temperature 98 F 97.8 F Pulse Rate 88 72 84 Respiratory 22 16 18 Rate Blood Pressure 97/67 107/80 116/69 O2 Sat by Pulse 99 99 96 Oximetry Medical Decision Making - Medical Decision Making Based on the patient's presentation and physical exam, I do believe she is likely experiencing similar abdominal discomfort and diarrhea as earlier this week probably I did discuss at length with her and is likely a viral syndrome. She has no known exposure to any form of bacterial illness to cause this. I'm concerned for continued dehydration. I do not believe that we require repeat CT imaging but we'll obtain a repeat abdominal x-ray in addition to repeat abdominal laboratory studies. She'll be symptomatically treated with IV fluids and analgesia medications in addition to a GI cocktail. She was in agreement this plan. Patient's PCP did start her on ciprofloxacin over concern for the possible salmonella.I have low suspicion for salmonella, however I'm concerned for dehydration.X-ray shows no new findings, but does show findings consistent for diarrhea which is consistent with the patient. Possible enteritis. Laboratory studies are remarkable for slight electrode abnormalities. Patient is not . Therefore plus ketones and urine. Urinalysis is otherwise a contaminated catch. Remainder the labs are unremarkable. I discussed the patient is findings with the patient. She would like to be admitted as possible due to continued symptoms. I did discuss with her that she does not say meet inpatient criteria but I will discuss the case with observ ation on-call. I did discuss the case with them and they agreed the patient would be stable for discharge home. Recommend a third fluid bolus and follow palpation. I discussed this with the patient she was in agreement this plan. Will be given prescriptions for home medications. Recommended holding ciprofloxacin at this time and calling her PCP to ensure that they would like her to continue taking it. I will provide the patient with a prescription for MARLA Ritchie Norco 5. I instructed the patient to follow up with their PCP in the next 3 days. I explained that the patient should return to the emergency department if they experience any worsening symptoms. Strict return precautions were discussed with the patient. The patient expressed understanding of these instructions. I answered all questions that the patient had. The patient was discharged home in good condition with their prescriptions and follow up information. - Lab Data Result diagrams: 12/28/21 09:48 12/28/21 09:48 Lab Results 12/28/21 12/28/21 12/28/21 Range/Units 09:48 09:48 09:48 WBC 6.1 (3.8-10.6) k/uL RBC 4.71 (3.80-5.40) m/uL Hgb 13.7 (11.4-16.0) gm/dL Hct 41.1 (34.0-46.0) % MCV 87.3 (80.0-100.0) fL MCH 29.0 (25.0-35.0) pg MCHC 33.3 (31.0-37.0) g/dL RDW 14.4 (11.5-15.5) % Plt Count 193 (150-450) k/uL MPV 9.7 Neutrophils % 85 % Lymphocytes % 9 % Monocytes % 4 % Eosinophils % 1 % Basophils % 0 % Neutrophils # 5.2 (1.3-7.7) k/uL Lymphocytes # 0.6 L (1.0-4.8) k/uL Monocytes # 0.2 (0-1.0) k/uL Eosinophils # 0.0 (0-0.7) k/uL Basophils # 0.0 (0-0.2) k/uL Sodium 136 L (137-145) mmol/L Potassium 3.4 L (3.5-5.1) mmol/L Chloride 105 (98-107) mmol/L Carbon Dioxide 17 L (22-30) mmol/L Anion Gap 14 mmol/L BUN 9 (7-17) mg/dL Creatinine 0.74 (0.52-1.04) mg/dL Est GFR (CKD-EPI)AfAm >90 (>60 ml/min/1.73 sqM) Est GFR (CKD-EPI)NonAf >90 (>60 ml/min/1.73 sqM) Glucose 131 H (74-99) mg/dL Calcium 8.0 L (8.4-10.2) mg/dL Total Bilirubin 0.4 (0.2-1.3) mg/dL AST 56 H (14-36) U/L ALT 27 (4-34) U/L Alkaline Phosphatase 86 (38-126) U/L Total Protein 7.6 (6.3-8.2) g/dL Albumin 4.5 (3.5-5.0) g/dL Amylase 65 (30-110) U/L Lipase 41 (23-300) U/L HCG, Qual Not Detected Urine Color Yellow Urine Appearance Cloudy H (Clear) Urine pH 6.0 (5.0-8.0) Ur Specific [place] 1.027 (1.001-1.035) Urine Protein 2+ H (Negative) Urine Glucose (UA) Trace H (Negative) Urine Ketones 4+ H (Negative) Urine Blood Trace H (Negative) Urine Nitrite Negative (Negative) Urine Bilirubin 1+ H (Negative) Urine Urobilinogen 2.0 (<2.0) mg/dL Ur Leukocyte Esterase Trace H (Negative) Urine RBC 6 H (0-5) /hpf Urine WBC 9 H (0-5) /hpf Ur Squamous Epith Cells 12 H (0-4) /hpf Amorphous Sediment Occasional H (None) /hpf Urine Bacteria Occasional H (None) /hpf Granular Casts 2 (0) /lpf Urine Mucus Many H (None) /hpf Disposition Clinical Impression: Diarrhea, Dehydration Disposition: HOME SELF-CARE Condition: Good Instructions (If sedation given, give patient instructions): Dehydration (ED), Acute Diarrhea (ED) Prescriptions: Dicyclomine [Bentyl] 20 mg PO TID PRN 7 Days #21 tablet PRN Reason: Pain HYDROcodone/APAP 5-325MG [[place] 5-325] 1 tab PO Q6HR PRN 3 Days #12 tab PRN Reason: Pain Ondansetron [Zofran ODT] 4 mg PO Q8HR PRN 3 Days #9 tab PRN Reason: Nausea Is patient prescribed a controlled substance at d/c from ED?: Yes When asked, does pt state using other controlled substances?: No If prescribed controlled substance>3 days was MAPS reviewed?: Prescribed <3 Days If opioid is for acute pain is fill amount 7 days or less?: Yes If Rx opioid, was Start Talking consent form obtained?: Yes Referrals: Aleah Herrera MD [Primary Care Provider] - 1-2 days Time of Disposition: 11:35
[2021-12-28 10:10] LABS: Basophils % (A) 0 %; Eosinophils % (A) 1 %; HCT 41.1 % (34.0-46.0); HGB 13.7 gm/dL (11.4-16.0); Lymphocytes # (A) 0.6 k/uL (1.0-4.8); Lymphocytes % (A) 9 %; MCHC 33.3 g/dL (31.0-37.0); MCV 87.3 fL (80.0-100.0); Mean Platelet Volume 9.7; Monocytes # (A) 0.2 k/uL (0-1.0); Monocytes % (A) 4 %; Neutrophils # (A) 5.2 k/uL (1.3-7.7); Neutrophils % (A) 85 %; Platelet Count 193 k/uL (150-450); RBC 4.71 m/uL (3.80-5.40); RDW 14.4 % (11.5-15.5); WBC 6.1 k/uL (3.8-10.6)
--- NOTE | 2021-12-28 10:10 | XR ---
EXAMINATION TYPE: XR KUB DATE OF EXAM: 12/28/2021 Comparison: 12/26/2021 Clinical History: 31-year-old female nausea, vomiting, diarrhea, abdominal pain Findings: Diffuse air-fluid levels throughout, most of which are likely within the colon with air extending dis tally to the rectum. Left-sided pelvic phlebolith. Cholecystectomy clips. No evidence for free intraperitoneal air. Lung bases are clear. Impression: Ongoing diarrheal state, possible ileus or enteritis. Clinically correlate.
[2021-12-28 10:14] LABS: ALT 27 U/L (4-34); AST 56 U/L (14-36); African American GFR (CKD) >90 (>60 ml/min/1.73 sqM); Albumin 4.5 g/dL (3.5-5.0); Alkaline Phosphatase 86 U/L (38-126); Amorphous Sediment,Urine Occasional /hpf; Amylase 65 U/L (30-110); Anion Gap 14 mmol/L; Appearance,Urine Cloudy (Clear); Bacteria,Urine Occasional /hpf; Bilirubin,Urine 1+ (Negative); Blood Urea Nitrogen 9 mg/dL (7-17); Blood,Urine Trace (Negative); Carbon Dioxide 17 mmol/L (22-30); Chloride 105 mmol/L (98-107); Color,Urine Yellow; Glucose 131 mg/dL (74-99); Glucose,Urine (UA) Trace (Negative); Granular Casts,Urine 2 /lpf (0); HCG,Qualitative Serum Not Detected; Ketones,Urine 4+ (Negative); Leukocyte Esterase,Urine Trace (Negative); Lipase 41 U/L (23-300); Mucus,Urine Many /hpf; Nitrite,Urine Negative (Negative); Non-African American GFR(CKD) >90 (>60 ml/min/1.73 sqM); Potassium 3.4 mmol/L (3.5-5.1); Protein,Urine 2+ (Negative); RBC,Urine 6 /hpf (0-5); Sodium 136 mmol/L (137-145); Specific Gravity,Urine 1.027 (1.001-1.035); Squamous Epithelial Cell,Urine 12 /hpf (0-4); Total Bilirubin 0.4 mg/dL (0.2-1.3); Total Protein 7.6 g/dL (6.3-8.2); WBC,Urine 9 /hpf (0-5)
[2021-12-28] MEDS ORDERED: SODIUM CHLORIDE 0.9% 1,000 ML IV STA (11:23)
[2021-12-28] MEDS ORDERED: HYDROcodone/APAP 5-325MG 1 EACH TAB PO STA (11:30)
[2021-12-28 11:53] VITALS: TEMP 97.8
[2021-12-28 12:05] VITALS: BP 116/69; PULSE 84; RESP 18
== END 2021-12-28 11:55 | disposition home or self-care (01) ==
LOC: EC 09:08
DX: R19.7 Diarrhea, unspecified (principal); E86.0 Dehydration; R10.84 Generalized abdominal pain; E11.9 Type 2 diabetes mellitus without complications; Z79.84 Long term (current) use of oral hypoglycemic drugs; Z91.018 Allergy to other foods; Z88.5 Allergy status to narcotic agent; Z90.49 Acquired absence of other specified parts of digestive tract
CPT/HCPCS: 36415; 80053; 82150; 83690; 85025; 81001; 84703; 74018; 99284; 96374; 96375; 96361; J2270; J1200; J2405

== ENCOUNTER → 2022-05-01 | Outpatient (CLI) | payer BC ==
[2022-05-01 10:56] LABS: Chol/HDL Ratio 4.52 Ratio; LDL Cholesterol,Calculated 124.2 mg/dL (0.0-131.0)
== END | disposition home or self-care (01) ==
LOC: LABWHC1 07:42
PROVIDERS: ATTEND Family Medicine
DX: E11.9 Type 2 diabetes mellitus without complications (principal)
CPT/HCPCS: 36415; 80061; 83036

== ENCOUNTER → 2022-05-08 | Outpatient (CLI) | payer BC ==
--- NOTE | 2022-05-08 08:51 | XR ---
EXAMINATION TYPE: XR thoracic spine 2V DATE OF EXAM: 05/08/2022 COMPARISON: NONE HISTORY: Pain TECHNIQUE: 3 views submitted FINDINGS: Alignment is anatomic. There is no compression deformities. Vertebral body height and disc interspa radha are maintained. Surgical clips in the right upper quadrant. Slight curvature of spine. Mild hype rtrophic spurring anteriorly. Multilevel mild degenerative disc disease. IMPRESSION: 1. Multilevel mild degenerative disc disease and hypertrophic spurring. Correlate with MRI as clinica lly warranted.
== END | disposition home or self-care (01) ==
LOC: RADXRMAIN 07:26
PROVIDERS: ATTEND Physician Assistant Medical
DX: M51.34 Other intervertebral disc degeneration, thoracic region (principal)
CPT/HCPCS: 72070

== ENCOUNTER → 2022-12-27 | Outpatient (CLI) | payer BC ==
[2022-12-27 16:27] LABS: Chol/HDL Ratio 4.08 Ratio; LDL Cholesterol,Calculated 105.1 mg/dL (0.0-131.0)
== END | disposition home or self-care (01) ==
LOC: LABWHC1 08:02
PROVIDERS: ATTEND Nurse Practitioner Family
DX: E11.9 Type 2 diabetes mellitus without complications (principal)
CPT/HCPCS: 36415; 80061; 83036